=== PATIENT | male | born 1980 | race Caucasian/White ===

== ENCOUNTER 2019-03-15 20:21 | Emergency (ER) | payer SELFPAY ==
[~2019-03-15] VITALS: Ht 185.4 cm; Wt 102.1 kg
[2019-03-15 20:25] VITALS: BP 135/80
[2019-03-15] MEDS ORDERED: DICL50TA4 PO (21:22)
[2019-03-15] MEDS ORDERED: CYCL10TA2 PO (21:22)
[2019-03-15] MEDS ORDERED: METH4TAB2 PO (21:22)
--- NOTE | 2019-03-15 21:23 | PHYS DOC ---
Past Medical History Past Medical History: Other Additional Past Medical Histor: GOUT,ARTHRITIS,CARPPEL TUNNEL Past Surgical History: Tonsillectomy, Other Additional Past Surgical Histo: "FATTY TISSUE REMOVED FROM NECK" Alcohol Use: Occasionally Drug Use: Marijuana Adult General Chief Complaint Chief Complaint: BACK PAIN OR INJURY HPI HPI Patient is a 38 year old female witness any medical history who presents to the ED today complaining of 10 out of 10 sharp intermittent right low back pain radiating to the right lower extremity that began today when he woke up. Patient denies any known injury. States the pain is worse when he moves certain ways. Denies any fever. Denies any urgency frequency dysuria. Denies any loss of bowel bladder function. Review of Systems Review of Systems Constitutional: Denies fever or chills [] GI: Denies abdominal pain, nausea, vomiting, bloody stools or diarrhea [] : Denies dysuria or hematuria [] Musculoskeletal: Reports right back pain radiating to the right lower extremity Integument: Denies rash or skin lesions [] Neurologic: Denies headache, focal weakness or sensory changes [] All other systems were reviewed and found to be within normal limits, except as documented in this note. Current Medications Current Medications Current Medications Medications (Trade) Dose Ordered Sig/Elodia Start Time Stop Time Status Last Admin Dose Admin Ketorolac Tromethamine (Toradol Im) 60 mg 1X ONCE 03/15/19 21:30 03/15/19 21:31 03/15/19 21:12 60 MG Prednisone (Prednisone) 60 mg 1X ONCE 03/15/19 21:30 03/15/19 21:31 03/15/19 21:11 60 MG Allergies Allergies Allergies Coded Allergies Type Severity Reaction Last Updated Verified No Known Drug Allergies 01/16/15 No Physical Exam Physical Exam Constitutional: Well developed, well nourished, no acute distress, non-toxic appearance. [] Abdomen: Bowel sounds normal, soft, no tenderness, no masses, no pulsatile masses. [] Skin: Warm, dry, no erythema, no rash. [] Back: Diffuse paraspinal muscle tenderness the right lumbar spine, no midline lumbar spine tenderness, no CVA tenderness. Positive right leg straight raises. Extremities: No tenderness, no cyanosis, no clubbing, ROM intact, no edema. [] Neurologic: Alert and oriented X 3, normal motor function, normal sensory function, no focal deficits noted. [] Psychologic: Affect normal, judgement normal, mood normal. [] Current Patient Data Vital Signs Vital Signs Date Time Temp Pulse Resp B/P (MAP) Pulse Ox O2 Delivery O2 Flow Rate FiO2 03/15/19 20:25 98.1 77 18 135/80 (98) 97 Room Air 98.1 EKG EKG [] Radiology/Procedures Radiology/Procedures [] Course & Med Decision Making Course & Med Decision Making Pertinent Labs and Imaging studies reviewed. (See chart for details) This is a 38-year-old male patient presented to the ED today with left low back pain, no known injury. Pain radiates to the right lower extremity. No cauda equina syndrome symptoms. Talked about radiology studies. Patient does not meet criteria for radiology studies. Provided prescription for diclofenac, Medrol Dosepak and cyclobenzaprine. Follow-up with PCP or the pain clinic in one to 2 weeks. Dragon Disclaimer Dragon Disclaimer This electronic medical record was generated, in whole or in part, using a voice recognition dictation system. Departure Departure Impression: Primary Impression: Back pain Additional Impression: Sciatica of right side Disposition: HOME, SELF-CARE Condition: STABLE Referrals: NO PCP (PCP) SERVANDO PERSAUD MD follow up in 2 weeks Patient Instructions: Back Pain, Adult, Sciatica, [id number] Additional Instructions: You have right low back with sciatica please apply ice to your low back, take the prescribed medications as ordered. Follow-up with your own doctor the provided doctor in 2 weeks. Scripts Methylprednisolone (MEDROL) 4 Mg Tab.ds.pk 1 PKG PO UD, #1 PKG Prov: COLT SOLIS APRN 03/15/19 Diclofenac Sodium (DICLOFENAC SODIUM) 50 Mg Tablet.dr 1 TAB PO BID, #20 TAB 0 Refills Prov: COLT SOLIS APRN 03/15/19 Cyclobenzaprine Hcl (CYCLOBENZAPRINE HCL) 10 Mg Tablet 1 TAB PO TID, #30 TAB Prov: COLT SOLIS APRN 03/15/19 Problem Qualifiers Primary Impression: Back pain Back pain location: low back pain Chronicity: acute Back pain laterality: right Sciatica presence: with sciatica Sciatica laterality: sciatica of right side Qualified Codes: M54.41 - Lumbago with sciatica, right side COLT SOLIS APRN Mar 15, 2019 21:22
[2019-03-15] MEDS ORDERED: KETOROLAC 60 MG/2 ML VIAL. IM ONE (21:30)
[2019-03-15] MEDS ORDERED: predniSONE 20 MG TABLET PO ONE (21:30)
== END 2019-03-15 21:29 | disposition home or self-care (01) ==
LOC: ER 20:21
DX: M54.41 Lumbago with sciatica, right side (principal); Z90.89 Acquired absence of other organs
CPT/HCPCS: 96372; 99283; J1885; J7512

== ENCOUNTER 2019-04-15 16:12 | Emergency (ER) | payer SELFPAY ==
[~2019-04-15] VITALS: Ht 195.6 cm; Wt 102.1 kg
[~2019-04-15 16:12] MED LIST: CYCL10TA2 PO; DICL50TA4 PO; METH4TAB2 PO
[2019-04-15 16:24] VITALS: BP 143/93
[2019-04-15] MEDS ORDERED: CEPH-264 PO (16:36)
--- NOTE | 2019-04-15 16:36 | PHYS DOC ---
Past Medical History Past Medical History: Other Additional Past Medical Histor: GOUT,ARTHRITIS,CARPPEL TUNNEL Past Surgical History: Tonsillectomy, Other Additional Past Surgical Histo: "FATTY TISSUE REMOVED FROM NECK" Alcohol Use: Occasionally Drug Use: Marijuana Adult General Chief Complaint Chief Complaint: SKIN RASH/ABSCESS [facility] Patient is a 38 year old male who presents with left arm cellulitis that sta rted the elbow 3 days ago and has spread dramatically. Review of Systems Review of Systems Constitutional: Denies fever or chills [] Eyes: Denies change in visual acuity, redness, or eye pain [] HENT: Denies nasal congestion or sore throat [] Respiratory: Denies cough or shortness of breath [] Cardiovascular: No additional information not addressed in HPI [] GI: Denies abdominal pain, nausea, vomiting, bloody stools or diarrhea [] : Denies dysuria or hematuria [] Musculoskeletal: Denies back pain or joint pain [] Integument: Denies rash or skin lesions [] Neurologic: Denies headache, focal weakness or sensory changes [] Endocrine: Denies polyuria or polydipsia [] All other systems were reviewed and found to be within normal limits, except as documented in this note. Allergies Allergies Allergies Coded Allergies Type Severity Reaction Last Updated Verified No Known Drug Allergies 01/16/15 No Physical Exam Physical Exam Constitutional: Well developed, well nourished, no acute distress, non-toxic appearance. [] HENT: Normocephalic, atraumatic, bilateral external ears normal, oropharynx moist, no oral exudates, nose normal. [] Eyes: PERRLA, EOMI, conjunctiva normal, no discharge. [] Neck: Normal range of motion, no tenderness, supple, no stridor. [] Cardiovascular:Heart rate regular rhythm, no murmur [] Lungs & Thorax: Bilateral breath sounds clear to auscultation [] Abdomen: Bowel sounds normal, soft, no tenderness, no masses, no pulsatile masses. [] Skin: Warm, dry, Left elbow and forearm erythema, no rash. [] Back: No tenderness, no CVA tenderness. [] Extremities: Left elbow tenderness, no cyanosis, no clubbing, ROM intact, Left elbow 2+ edema. [] Neurologic: Alert and oriented X 3, normal motor function, normal sensory function, no focal deficits noted. [] Psychologic: Affect normal, judgement normal, mood normal. [] EKG EKG [] Radiology/Procedures Radiology/Procedures [] Course & Med Decision Making Course & Med Decision Making Patient is a 38 year old male who presents with left arm cellulitis that started the elbow 3 days ago and has spread dramatically. He states is a throbbing pain is 5 out of 6. There is no wound or drainage seen. The redness extends right above the elbow down the outer arm to mid forearm and wraps around dorsal mid forearm back up to right above the outer elbow. The patient's sister had used a marker to outline the area so they can see how much it is spreading and it has spread dramatically. Patient is afebrile vital signs are within normal limits. Patient denies body aches, fever, nausea, vomiting. It is painful when he bends and extends the arm at the elbow. Elbow has 1-2+ edema. Patient has full range of motion at the elbow but has some pain. It slightly tender with palpation. I have had Dr. Luna also examine the patient has the redness has spread so fast. He states that this is likely infected bursa and the elbow and the patient can be sent home on Keflex but should return immediately if he begins having a fever or swelling gets worse and more painful. Dragon Disclaimer Dragon Disclaimer This electronic medical record was generated, in whole or in part, using a voice recognition dictation system. Departure Departure Impression: Primary Impression: Infection of bursa Disposition: HOME, SELF-CARE Condition: STABLE Referrals: NO PCP (PCP) Patient Instructions: Bursitis, Cellulitis Additional Instructions: Return for increased pain, redness, swelling and/or fever. Take medication as prescribed. Use ibuprofen or Tylenol for pain. Scripts Cephalexin (KEFLEX) 500 Mg Capsule 1 CAP PO BID, #14 CAP Prov: BRYANT VAN APRN 04/15/19 BRYANT VAN APRN Apr 15, 2019 16:36
== END 2019-04-15 16:40 | disposition home or self-care (01) ==
LOC: ER 16:12
DX: M71.122 Other infective bursitis, left elbow (principal); L03.114 Cellulitis of left upper limb; M19.90 Unspecified osteoarthritis, unspecified site; Z90.89 Acquired absence of other organs
CPT/HCPCS: 99283

== ENCOUNTER 2019-08-04 19:06 | Emergency (ER) | payer SELFPAY ==
[~2019-08-04] VITALS: Ht 185.4 cm; Wt 99.8 kg
[~2019-08-04 19:06] MED LIST changes: +CEPH-264 PO
[2019-08-04 19:34] VITALS: BP 149/85
--- NOTE | 2019-08-04 23:04 | PHYS DOC ---
Past Medical History Past Medical History: Other Additional Past Medical Histor: GOUT,ARTHRITIS,CARPPEL TUNNEL Past Surgical History: Tonsillectomy, Other Additional Past Surgical Histo: "FATTY TISSUE REMOVED FROM NECK" Alcohol Use: Occasionally Drug Use: Marijuana Adult General Chief Complaint Chief Complaint: EARACHE/EAR PAIN HPI HPI Patient is a 39 year old male who presents to the ER with complaints of left ear pain for the last 4-5 days with decreased hearing. Pt denies any injury, drainage, bleeding, or fever. He states that he can still hear just not as well as he normally can. Pt denies any cough, nausea, vomiting, diarrhea, sore throat, shortness of breath, or wheezing. He states he has had some nasal congestion. He currently rates his discomfort a 5 out of 10 on the pain scale he denies any alleviating or exacerbating factors. All other ROS is neg unless otherwise noted in HPI. Review of Systems Review of Systems See Above Allergies Allergies Allergies Coded Allergies Type Severity Reaction Last Updated Verified No Known Drug Allergies 01/16/15 No Physical Exam Physical Exam See Above Constitutional: Well developed, well nourished, no acute distress, non-toxic appearance. [] HENT: Normocephalic, atraumatic, bilateral external ears normal, bilateral TMs normal, posterior pharynx cobblestone appearance, nasal turbinates are edematous and erythematous bilaterally Eyes: PERRLA, EOMI, conjunctiva normal, no discharge. [] Neck: Normal range of motion, no tenderness, supple, no stridor. [] Cardiovascular:Heart rate regular rhythm, no murmur [] Lungs & Thorax: Bilateral breath sounds clear to auscultation [] Skin: Warm, dry, no erythema, no rash. [] Back: No tenderness Extremities: No cyanosis, no clubbing, ROM intact Neurologic: Alert and oriented X 3, no focal deficits noted. [] Psychologic: Affect normal, judgement normal, mood normal. [] Current Patient Data Vital Signs Vital Signs Date Time Temp Pulse Resp B/P (MAP) Pulse Ox O2 Delivery O2 Flow Rate FiO2 08/04/19 19:34 98.1 86 18 149/85 (106) 95 Room Air 98.1 EKG EKG [] Radiology/Procedures Radiology/Procedures [] Course & Med Decision Making Course & Med Decision Making Pertinent Labs and Imaging studies reviewed. (See chart for details) Patient eloped from the emergency department after speaking with registration. [] Dragon Disclaimer Dragon Disclaimer This electronic medical record was generated, in whole or in part, using a voice recognition dictation system. Departure Departure Impression: Primary Impression: Encounter for medical screening examination Disposition: HOME, SELF-CARE (eloped) Condition: STABLE Referrals: NO PCP (PCP) JONATHAN PAGAN APRN Aug 04, 2019 23:04
== END 2019-08-04 20:14 | disposition home or self-care (01) ==
LOC: ER 19:06
DX: H92.02 Otalgia, left ear (principal); R09.81 Nasal congestion
CPT/HCPCS: 99281